=== PATIENT | male | born 1955 | race Caucasian/White ===

== ENCOUNTER → 2017-07-02 13:25 | Outpatient (CLI) | payer OTHER | END | disposition home or self-care (01) | LOC: D.MRI 13:25 | DX: M54.5 Low back pain (principal) ==

== ENCOUNTER → 2017-08-05 13:34 | Outpatient (CLI) | payer OTHER | END | disposition home or self-care (01) | LOC: D.CT 13:34 | DX: R10.9 Unspecified abdominal pain (principal) ==